=== PATIENT | female | born 1985 | race Caucasian/White ===

== ENCOUNTER 2022-10-19 09:23 | Outpatient (CLI) | payer BC, SELFPAY | END 2022-10-19 09:24 | disposition home or self-care (01) | PROVIDERS: PCP Family Medicine; Visit Provider Family Medicine | DX: Z00.00 Encounter for general adult medical examination without abnormal findings (principal); R68.82 Decreased libido; E66.01 Morbid (severe) obesity due to excess calories; R53.83 Other fatigue; Z13.6 Encounter for screening for cardiovascular disorders; Z13.1 Encounter for screening for diabetes mellitus | CPT/HCPCS: 80053; 80061; 84443 ==

== ENCOUNTER 2022-11-09 07:37 | Outpatient (CLI) | payer BC, SELFPAY ==
--- NOTE | 2022-11-09 07:45 | CRLHL7_ITS ---
For Patients: As a result of the Century Cures Act, medical imaging exams and procedure reports are released immediately into your electronic medical record. You may view this report before your referring provider. If you have questions, please contact your health care provider. DIGITAL DIAGNOSTIC BILATERAL MAMMOGRAM WITH IMPLANT-DISPLACED VIEWS USING TOMOSYNTHESIS AND COMPUTER-AIDED DETECTION CLINICAL HISTORY: LEFT breast lump follow-up. COMPARISON: 12/29/2016. TECHNIQUE: Digital BILATERAL mammogram in four projections. Tomosynthesis and CAD utilized. BREAST COMPOSITION: There are areas of scattered fibroglandular density. FINDINGS: 3D implant-displaced CC/MLO BILATERAL mammogram submitted along with 2D non-implant displaced CC and MLO BILATERAL mammogram images. BILATERAL implants are intact. No suspicious masses or architectural distortion. No suspicious calcifications or adenopathy. IMPRESSION: Normal BILATERAL mammograms. No evidence of malignancy. RECOMMENDATIONS: Annual BILATERAL screening mammography. Results and recommendations discussed with the patient. BI-RADS Category 2: Benign A lay language report of this examination will be provided to the patient. Dictated by Michael Hua MD @ 11/09/2022 8:50:14 AM jj/Dictated by: Michael Hua MD @ 11/09/2022 8:50:00 AM (Electronically Signed)
== END 2022-11-09 07:38 | disposition home or self-care (01) ==
LOC: MAMMO 07:38
PROVIDERS: PCP Family Medicine; Visit Provider Family Medicine
DX: N63.20 Unspecified lump in the left breast, unspecified quadrant (principal); R92.8 Other abnormal and inconclusive findings on diagnostic imaging of breast
CPT/HCPCS: 77066; 77067; G0279

== ENCOUNTER 2023-01-07 15:45 | Outpatient (REF) | payer BC, SELFPAY | END 2023-01-07 15:46 | disposition home or self-care (01) | LOC: NFLDREF 15:45 | PROVIDERS: PCP Family Medicine; Visit Provider Family Medicine | DX: Z01.84 Encounter for antibody response examination (principal); Z11.59 Encounter for screening for other viral diseases | CPT/HCPCS: 86705; 86735; 86765; 86787 ==